=== PATIENT | male | born 1970 | race Caucasian/White ===

== ENCOUNTER 2019-02-13 05:40 | Inpatient (IN) | payer OTHER ==
[2019-02-13] MEDS: CEFAZOLIN 2 GM/50 ML (PMX) 50 ML IVPB (06:48)
[2019-02-13] MEDS: LACTATED RINGER'S 1,000 ML IV (06:48)
[2019-02-13] MEDS ORDERED: FENTAnyl 50 MCG/ML VIAL ×3 (06:54→10:58)
[2019-02-13] MEDS ORDERED: GELATIN SIZE 100 SPONGE (07:02)
[2019-02-13] MEDS ORDERED: THROMBIN 5000 UNIT VIAL (07:02)
[2019-02-13] MEDS: BUPIVACAINE 0.25% (MPF) 30 ML INJ (07:49)
[2019-02-13] MEDS: POLYMYXIN/BACITRACIN 1L IRRIG (07:49)
[2019-02-13] MEDS ORDERED: SUGAMMADEX SODIUM 200 MG/2 ML VIAL IV (07:56)
[2019-02-13] MEDS ORDERED: ROCURONIUM 50 MG INJ (07:56)
[2019-02-13] MEDS ORDERED: PROPOFOL 40 ML (07:56)
[2019-02-13] MEDS ORDERED: LIDOCAINE 100 MG SYRINGE (07:56)
[2019-02-13] MEDS ORDERED: HYDROmorphONE 1 MG/5 ML IV SYRINGE IV ×3 (10:59→11:00)
[2019-02-13] MEDS ORDERED: DIAZEPAM 5 MG TAB PO (11:00)
[2019-02-13] MEDS ORDERED: METOCLOPRAMIDE 10 MG INJ IV (11:00)
[2019-02-13] MEDS ORDERED: DIPHENHYDRAMINE 50 MG INJ IV (11:00)
[2019-02-13] MEDS ORDERED: NACL 0.9% 3 ML SYG IV (11:00)
[2019-02-13] MEDS ORDERED: TRIMETHOBENZAMIDE 100 MG/ML VIAL IM (11:00)
[2019-02-13] MEDS ORDERED: HYDROCODONE/APAP (5/325) TAB PO (11:00)
[2019-02-13] MEDS ORDERED: ACETAMINOPHEN 325 MG TAB PO (11:00)
[2019-02-13] MEDS ORDERED: BETHANECHOL 25 MG TAB PO (11:00)
[2019-02-13] MEDS ORDERED: DIPHENHYDRAMINE 50 MG CAP PO (11:00)
[2019-02-13] MEDS ORDERED: NALOXONE (0.4 MG/ML) INJ IV (11:00)
[2019-02-13] MEDS ORDERED: FENTAnyl 50 MCG/ML VIAL IV ×2 (11:00)
[2019-02-13] MEDS ORDERED: ZOLPIDEM 5 MG TAB PO (11:00)
[2019-02-13] MEDS ORDERED: ONDANSETRON 4 MG INJ IV ×2 (11:00)
[2019-02-13] MEDS ORDERED: DIAZEPAM 5 MG/ML SYG IM (11:00)
[2019-02-13] MEDS ORDERED: CEPASTAT LOZENGE MT (11:00)
[2019-02-13] MEDS ORDERED: MEPERIDINE 25 MG INJ IV (11:00)
[2019-02-13] MEDS ORDERED: PROCHLORPERAZINE 10 MG TAB PO (11:00)
[2019-02-13] MEDS ORDERED: ALBUTEROL 0.083% (NEB) 2.5 MG/3 ML AMP HHN (11:00)
[2019-02-13] MEDS ORDERED: HYDROmorphONE 0.2 MG/ML PCA (11:03)
[2019-02-13] MEDS: FENTAnyl 50 MCG/ML VIAL IV (11:08)
[2019-02-13] MEDS: HYDROmorphONE 1 MG/5 ML IV SYRINGE IV (11:09)
[2019-02-13] MEDS: HYDROmorphONE 0.2 MG/ML PCA IV (11:17)
[2019-02-13] MEDS: CEFAZOLIN 1 GM/50 ML (PMX) 50 ML IVPB ×2 (11:37→17:42)
[2019-02-13] MEDS: DEXTROSE 5%-0.45% NACL 1,000 ML IV ×2 (12:17→21:05)
[2019-02-13] MEDS: RANITIDINE 150 MG TAB PO (21:04)
[2019-02-14] MEDS: CEFAZOLIN 1 GM/50 ML (PMX) 50 ML IVPB ×2 (00:23→05:02)
[2019-02-14 05:34] LABS: HEMATOCRIT 37.1 % (42.0-52.0); HEMOGLOBIN 12.7 g/dl (14.0-18.0)
[2019-02-14 06:01] LABS: ANION GAP 8 (5-13); BLOOD UREA NITROGEN 9 mg/dl (7-20); CALCIUM 8.1 mg/dl (8.4-10.2); CARBON DIOXIDE 26 mmol/L (21-31); CHLORIDE 105 mmol/L (97-110); Estimated GFR > 60 mL/min (>60); GLUCOSE 119 mg/dl (70-220); POTASSIUM 3.9 mmol/L (3.5-5.1); SODIUM 139 mmol/L (135-144)
[2019-02-14] MEDS ORDERED: BETHANECHOL 25 MG TAB PO (08:00)
[2019-02-14] MEDS: ASCORBIC ACID 500 MG TAB PO (08:31)
[2019-02-14] MEDS: DOCUSATE SODIUM 100 MG CAP PO (08:32)
[2019-02-14] MEDS: HYDROCODONE/APAP (5/325) TAB PO ×2 (08:32→16:37)
[2019-02-14] MEDS: RANITIDINE 150 MG TAB PO (08:33)
[2019-02-14] MEDS: DEXTROSE 5%-0.45% NACL 1,000 ML IV (09:00)
[2019-02-14] MEDS: FERROUS SULFATE (EC) 325 MG TAB PO ×2 (09:08→16:37)
[2019-02-14 10:30] LABS: ADD UMIC YES; UR ASCORBIC ACID NEGATIVE (NEGATIVE); UR BILIRUBIN (Dip) NEGATIVE (NEGATIVE); UR BLOOD (Dip) 1+ mg/dL (NEGATIVE); UR CLARITY CLEAR (CLEAR); UR COLOR YELLOW (YELLOW); UR GLUCOSE (Dip) NEGATIVE (NEGATIVE); UR KETONES (Dip) NEGATIVE (NEGATIVE); UR LEUKOCYTE ESTERASE (Dip) NEGATIVE Leu/ul (NEGATIVE); UR NITRITE (Dip) NEGATIVE (NEGATIVE); UR RBC 9 /HPF (0-5); UR TOTAL PROTEIN (Dip) NEGATIVE (NEGATIVE); UR UROBILINOGEN (Dip) NEGATIVE (NEGATIVE); UR WBC 0 /HPF (0-5)
[2019-02-14] MEDS: AL HYDROX/MG HYDROX/SIMETH 30 ML CUP PO (17:19)
== END 2019-02-14 17:20 | disposition home or self-care (01) | DRG 520 ==
LOC: REC 05:40 → MS1 12:17
PROC: 00NY0ZZ Release Lumbar Spinal Cord, Open Approach (ICD-10-PCS; principal; 2019-02-13 07:00)
PROC: 0ST20ZZ Resection of Lumbar Vertebral Disc, Open Approach (ICD-10-PCS; 2019-02-13 07:00)
PROC: 4A11X4G Monitoring of Peripheral Nervous Electrical Activity, Intraoperative, External Approach (ICD-10-PCS; 2019-02-13 07:00)
DX: M51.26 Other intervertebral disc displacement, lumbar region (principal); M48.061 Spinal stenosis, lumbar region without neurogenic claudication; E88.2 Lipomatosis, not elsewhere classified; R31.9 Hematuria, unspecified
CPT/HCPCS: 72020; 80048; 81001; 85014; 85018; 86850; 86900; 86901; 86920; 87086; 88304; 88311; 97116; 97162; 97530